=== PATIENT | female | born 1990 | race Caucasian/White ===

== ENCOUNTER 2020-03-23 16:25 | Emergency (ER) | payer OTHER ==
[~2020-03-23] VITALS: Ht 170.2 cm; Wt 86.2 kg
[~2020-03-23 16:25] MED LIST: ADDERALL 20 MG20 M1 PO; GRALISE600 MG PO; NORCO 5-325 TA1 EAC2 PO; SEROQUEL 100 M100 M1 PO; SYNTHROID50 MCG PO; WELLBUTRIN SR150 MG PO; XANAX1 MG PO; ZOFRAN ODT4 MG PO
[2020-03-23 19:04] LABS: URINE BILIRUBIN NEGATIVE (Negative); URINE BLOOD NEGATIVE (Negative); URINE CLARITY CLEAR; URINE COLOR YELLOW; URINE GLUCOSE-RANDOM* TRACE (Negative); URINE KETONES NEGATIVE (Negative); URINE LEUKOCYTES-REFLEX TRACE (Negative); URINE NITRITE-REFLEX NEGATIVE (Negative); URINE PROTEIN (DIPSTICK) NEGATIVE (Negative); URINE UROBILINOGEN 0.2 E.U./dl (0.2-1.0)
[2020-03-23 19:06] LABS: BASOPHILS 0.9 % (0.0-2.0); EOSINOPHILS 11.5 % (0.0-3.0); HEMATOCRIT 32.9 % (37.0-47.0); LYMPHOCYTES 28.8 % (24.0-44.0); MCH 30.3 pg (26.0-34.0); MCHC 33.3 g/dL (28.0-37.0); MCV 90.8 fL (80.0-100.0); MONOCYTES 5.6 % (1.0-8.0); PLATELET COUNT 200 thou/uL (150-400); POLYS 53.2 % (36.0-66.0); RBC 3.62 mil/uL (4.20-5.00); RDW 14.3 % (10.5-14.5); WBC 3.8 thou/uL (4.0-11.0)
[2020-03-23 19:12] LABS: CALCIUM 8.7 mg/dL (8.5-10.1); CREATININE 0.5 mg/dL (0.6-1.0); POTASSIUM 3.2 mmol/L (3.5-5.1)
[2020-03-23 19:18] LABS: ALBUMIN 3.2 g/dL (3.4-5.0); TOTAL BILIRUBIN 0.7 mg/dL (0.2-1.0); TOTAL PROTEIN 5.8 g/dL (6.4-8.2)
[2020-03-23 19:37] VITALS: BP 95/53
== END 2020-03-23 19:37 | disposition home or self-care (01) ==
LOC: ER 16:25
PROVIDERS: Emergency Medicine
DX: K59.00 Constipation, unspecified (principal); E87.6 Hypokalemia; Z79.899 Other long term (current) drug therapy

== ENCOUNTER 2020-03-30 15:50 | Emergency (ER) | payer OTHER ==
[~2020-03-30] VITALS: Ht 170.2 cm; Wt 86.2 kg
[2020-03-30 17:11] LABS: URINE BILIRUBIN NEGATIVE (Negative); URINE BLOOD NEGATIVE (Negative); URINE CLARITY CLEAR; URINE COLOR YELLOW; URINE GLUCOSE-RANDOM* NEGATIVE (Negative); URINE KETONES NEGATIVE (Negative); URINE LEUKOCYTES-REFLEX NEGATIVE (Negative); URINE NITRITE-REFLEX NEGATIVE (Negative); URINE PROTEIN (DIPSTICK) NEGATIVE (Negative); URINE SPECIFIC GRAVITY 1.015 (1.005-1.035); URINE UROBILINOGEN 0.2 E.U./dl (0.2-1.0)
[2020-03-30 17:11] LABS: ABSOLUTE NEUTROPHILS 3.8 thou/uL (1.4-8.2); BASOPHILS 0.8 % (0.0-2.0); EOSINOPHILS 8.4 % (0.0-3.0); HEMATOCRIT 34.7 % (37.0-47.0); HEMOGLOBIN 11.5 gm/dL (12.0-15.0); LYMPHOCYTES 19.1 % (24.0-44.0); MCH 30.2 pg (26.0-34.0); MCHC 33.2 g/dL (28.0-37.0); MCV 91.1 fL (80.0-100.0); MONOCYTES 5.8 % (1.0-8.0); PLATELET COUNT 245 thou/uL (150-400); POLYS 65.9 % (36.0-66.0); RBC 3.81 mil/uL (4.20-5.00); RDW 14.5 % (10.5-14.5); WBC 5.8 thou/uL (4.0-11.0)
[2020-03-30 17:26] LABS: CALCIUM 9.1 mg/dL (8.5-10.1); CREATININE 0.6 mg/dL (0.6-1.0); POTASSIUM 3.4 mmol/L (3.5-5.1)
[2020-03-30 17:33] LABS: ALBUMIN 3.7 g/dL (3.4-5.0); TOTAL BILIRUBIN 0.3 mg/dL (0.2-1.0); TOTAL PROTEIN 6.2 g/dL (6.4-8.2)
[2020-03-30 18:50] VITALS: BP 117/68
--- NOTE | 2020-03-31 07:27 | EKG ---
[address] [place] [address] ELECTROCARDIOGRAM REPORT Name: CHRISTY BEDOLLA Room #: [facility]ITAL[facility] [id number] Admission: 03/30/20 Attend Phys: Discharge: 03/30/20 Date of : 86 Report #: [id number] [facility] ED Test Date: 2020-03-30 Test Time: 17:10:29 Pat Name: CHRISTY BEDOLLA Department: Room: Gender: F [employer]: KAYLAN : 1990 Requested By: Becky Zhang Order Number: [id number] MD: Elvis Brasher Measurements Intervals [place] Rate: 102 P: 59 IA: 128 QRS: 6 QRSD: 95 T: 17 QT: 346 QTc: 451 Interpretive Statements Sinus tachycardia Probable left atrial enlargement Compared to ECG 03/17/2020 16:08:02 No significant changes Electronically Signed On 03-31-2020 7:26:52 EDUCATION DEPARTMENT CHAIR by Elvis Brasher [email or web address] <ELECTRONICALLY SIGNED> By: Elvis Brasher MD, [facility] 03/31/20 0726 1710 1710 Elvis Brasher MD, FACC /EPI
== END 2020-03-30 18:50 | disposition home or self-care (01) ==
LOC: ER 15:50
PROVIDERS: Physician Assistant
DX: R10.33 Periumbilical pain (principal); R10.11 Right upper quadrant pain; R11.2 Nausea with vomiting, unspecified; Z79.899 Other long term (current) drug therapy